=== PATIENT | male | born 1975 | race Caucasian/White ===

== ENCOUNTER 2020-09-15 09:14 | Observation (INO) | payer BC ==
[2020-09-15] MEDS ORDERED: SODIUM CHLORIDE 0.9% 1,000 ML IV STA (09:33)
--- NOTE | 2020-09-15 09:37 | ED ---
General Adult HPI - General Chief complaint: Neuro Symptoms/Deficit Stated complaint: Neuro symptoms Time Seen by Provider: 09/15/20 09:27 Source: patient, RN notes reviewed Mode of arrival: wheelchair Limitations: no limitations - History of Present Illness Initial comments: Patient is a pleasant 44-year-old male presenting to the emergency department with concerns for neurological symptoms. Symptoms have been mild and intermittent over the past week or 2. Symptoms worsened last night. Patient is forgetful about driving home today as well as possibly hitting his head yesterday. Patient has been off balance. Patient has said some inappropriate answers to questions and has been confused at times. No isolated area of weakness. Patient does complain of mild headache. Patient complains of feeling drowsy - Related Data Home Medications Medication Instructions Recorded Confirmed Ibuprofen [Advil] 400 - 1,200 mg PO Q6HR PRN 09/15/20 09/15/20 Multivit-Min/Folic/Vit K/Lycop 1 tab PO DAILY 09/15/20 09/15/20 [Men's Multivitamin Tablet] Allergies Allergy/AdvReac Type Severity Reaction Status Date / Time No Known Allergies Allergy Verified 09/15/20 10:40 Review of Systems ROS Statement: Those systems with pertinent positive or pertinent negative responses have been documented in the HPI. ROS Other: All systems not noted in ROS Statement are negative. Constitutional: Denies: fever Eyes: Denies: eye pain ENT: Denies: ear pain Respiratory: Denies: cough, dyspnea Cardiovascular: Denies: chest pain Endocrine: Reports: fatigue Gastrointestinal: Denies: abdominal pain Genitourinary: Denies: dysuria Musculoskeletal: Denies: back pain Skin: Denies: rash Neurological: Reports: as per HPI, headache, confusion Past Medical History Past Medical History: No Reported History History of Any Multi-Drug Resistant Organisms: None Reported Past Surgical History: No Surgical Hx Reported Past Psychological History: No Psychological Hx Reported Smoking Status: Current every day smoker Past Alcohol Use History: Daily Past Drug Use History: None Reported General Exam Limitations: no limitations General appearance: alert, in no apparent distress Head exam: Present: normocephalic Eye exam: Present: normal appearance, PERRL, EOMI. Absent: nystagmus ENT exam: Present: normal oropharynx Neck exam: Present: normal inspection Respiratory exam: Present: normal lung sounds bilaterally Cardiovascular Exam: Present: regular rate, normal rhythm GI/Abdominal exam: Present: soft. Absent: tenderness Extremities exam: Present: normal inspection Neurological exam: Present: alert, oriented X3, CN II-XII intact. Absent: motor sensory deficit Expanded Neurological exam: Present: protecting the airway Patient oriented to: Present: person, place, time Speech: Present: fluid speech Cranial nerves: EOM's Intact: Normal, Facial Sensation: Normal Sensory exam: Upper Extremity Light Touch: Normal, Lower Extremity Light Touch: Normal Motor strength exam: RUE: 5, LUE: 5, RLE: 5, LLE: 5 Eye Response: (4) open spontaneously Motor Response: (6) obeys commands Verbal Response: (5) oriented Psychiatric exam: Present: normal affect, normal mood Skin exam: Present: normal color Course Vital Signs 09/15/20 09/15/20 09:21 09:37 Temperature 98.2 F Pulse Rate 78 108 H Respiratory 18 18 Rate Blood Pressure 167/110 174/118 O2 Sat by Pulse 96 98 Oximetry EKG Findings - EKG Comments: EKG Findings:: Sinus tachycardia 1:15. FL 126. QRS 90. QT 314. QTC 434. Normal axis. Normal QRS. No acute ST change. Medical Decision Making - Medical Decision Making Patient reevaluated and resting comfortably in bed. Heart rate and blood pressure did remain high. Patient and family updated on results. Patient states he only drinks 2 large beers per day and denies drinking anything this morning. Patient is resistant to idea that symptoms could be related to alcohol use. Case was discussed with Dr. Seo, who will admit covering for Dr. Banks. He agrees with neurology consult and recommends Valium 5 mg every 8 as well as Lopressor 12.5 q8 - Lab Data Result diagrams: 09/15/20 09:43 09/15/20 09:43 Lab Results 09/15/20 09/15/20 09/15/20 Range/Units 09:43 09:43 09:43 WBC 7.4 (3.8-10.6) k/uL RBC 4.50 (4.30-5.90) m/uL Hgb 15.3 (13.0-17.5) gm/dL Hct 45.9 (39.0-53.0) % MCV 102.1 H (80.0-100.0) fL MCH 34.1 (25.0-35.0) pg MCHC 33.4 (31.0-37.0) g/dL RDW 13.2 (11.5-15.5) % Plt Count 303 (150-450) k/uL MPV 7.4 Neutrophils % 67 % Lymphocytes % 24 % Monocytes % 6 % Eosinophils % 1 % Basophils % 1 % Neutrophils # 4.9 (1.3-7.7) k/uL Lymphocytes # 1.7 (1.0-4.8) k/uL Monocytes # 0.4 (0-1.0) k/uL Eosinophils # 0.1 (0-0.7) k/uL Basophils # 0.1 (0-0.2) k/uL Macrocytosis Slight PT 10.0 (9.0-12.0) sec INR 1.0 (<1.2) APTT 21.8 L (22.0-30.0) sec Sodium 139 (137-145) mmol/L Potassium 4.8 (3.5-5.1) mmol/L Chloride 106 (98-107) mmol/L Carbon Dioxide 22 (22-30) mmol/L Anion Gap 11 mmol/L BUN 16 (9-20) mg/dL Creatinine 0.66 (0.66-1.25) mg/dL Est GFR (CKD-EPI)AfAm >90 (>60 ml/min/1.73 sqM) Est GFR (CKD-EPI)NonAf >90 (>60 ml/min/1.73 sqM) Glucose 94 (74-99) mg/dL Calcium 9.6 (8.4-10.2) mg/dL Total Bilirubin 0.5 (0.2-1.3) mg/dL AST 42 (17-59) U/L ALT 33 (4-49) U/L Alkaline Phosphatase 76 (38-126) U/L Troponin I (0.000-0.034) ng/mL Total Protein 7.8 (6.3-8.2) g/dL Albumin 4.6 (3.5-5.0) g/dL Urine Opiates Screen (NotDetected) Ur Oxycodone Screen (NotDetected) Urine Methadone Screen (NotDetected) Ur Propoxyphene Screen (NotDetected) Ur Barbiturates Screen (NotDetected) U Tricyclic Antidepress (NotDetected) Ur Phencyclidine Scrn (NotDetected) Ur Amphetamines Screen (NotDetected) U Methamphetamines Scrn (NotDetected) U Benzodiazepines Scrn (NotDetected) Urine Cocaine Screen (NotDetected) U Marijuana (THC) Screen (NotDetected) Serum Alcohol 135 mg/dL 09/15/20 09/15/20 Range/Units 09:43 09:43 WBC (3.8-10.6) k/uL RBC (4.30-5.90) m/uL Hgb (13.0-17.5) gm/dL Hct (39.0-53.0) % MCV (80.0-100.0) fL MCH (25.0-35.0) pg MCHC (31.0-37.0) g/dL RDW (11.5-15.5) % Plt Count (150-450) k/uL MPV Neutrophils % % Lymphocytes % % Monocytes % % Eosinophils % % Basophils % % Neutrophils # (1.3-7.7) k/uL Lymphocytes # (1.0-4.8) k/uL Monocytes # (0-1.0) k/uL Eosinophils # (0-0.7) k/uL Basophils # (0-0.2) k/uL Macrocytosis PT (9.0-12.0) sec INR (<1.2) APTT (22.0-30.0) sec Sodium (137-145) mmol/L Potassium (3.5-5.1) mmol/L Chloride (98-107) mmol/L Carbon Dioxide (22-30) mmol/L Anion Gap mmol/L BUN (9-20) mg/dL Creatinine (0.66-1.25) mg/dL Est GFR (CKD-EPI)AfAm (>60 ml/min/1.73 sqM) Est GFR (CKD-EPI)NonAf (>60 ml/min/1.73 sqM) Glucose (74-99) mg/dL Calcium (8.4-10.2) mg/dL Total Bilirubin (0.2-1.3) mg/dL AST (17-59) U/L ALT (4-49) U/L Alkaline Phosphatase (38-126) U/L Troponin I <0.012 (0.000-0.034) ng/mL Total Protein (6.3-8.2) g/dL Albumin (3.5-5.0) g/dL Urine Opiates Screen Not Detected (NotDetected) Ur Oxycodone Screen Not Detected (NotDetected) Urine Methadone Screen Not Detected (NotDetected) Ur Propoxyphene Screen Not Detected (NotDetected) Ur Barbiturates Screen Not Detected (NotDetected) U Tricyclic Antidepress Not Detected (NotDetected) Ur Phencyclidine Scrn Not Detected (NotDetected) Ur Amphetamines Screen Not Detected (NotDetected) U Methamphetamines Scrn Not Detected (NotDetected) U Benzodiazepines Scrn Not Detected (NotDetected) Urine Cocaine Screen Not Detected (NotDetected) U Marijuana (THC) Screen Not Detected (NotDetected) Serum Alcohol mg/dL - Radiology Data Radiology results: report reviewed (Computed tomography scan of the brain and CTA revealed no acute process) Disposition Clinical Impression: Ataxia, Alcohol intoxication, Hypertension Disposition: ADMITTED IP TO THIS HOSP Is patient prescribed a controlled substance at d/c from ED?: No Referrals: Inder Banks MD [Primary Care Provider] - 1-2 days Decision Time: 10:58
--- NOTE | 2020-09-15 10:01 | CT ---
EXAMINATION TYPE: CT brain wo con for TPA DATE OF EXAM: 09/15/2020 COMPARISON: None INDICATION: Slurred speech DLP: 1134.8 mGycm, Automated exposure control for dose reduction was used. CONTRAST: None CT of the brain is performed utilizing 3 mm thick sections through the posterior fossa and 3 mm thick sections through the remaining calvarium. Study is performed within 24 hours of arrival to the hosp ital. No abnormal hyperdensity is present to suggest an acute intracranial hemorrhage. No mass lesion is evident. No acute infarcts are evident. Ventricles and sulci are appropriate for the patient age. Minimal mucosal thickening is within the right maxillary sinus. There is mild mucosal thickening with in scattered bilateral ethmoid air cells, more so on the right. Mastoid air cells are clear. IMPRESSIONS: 1. No acute intracranial process radiographically apparent.
[2020-09-15 10:05] LABS: Basophils # (A) 0.1 k/uL (0-0.2); Basophils % (A) 1 %; Eosinophils # (A) 0.1 k/uL (0-0.7); Eosinophils % (A) 1 %; HCT 45.9 % (39.0-53.0); HGB 15.3 gm/dL (13.0-17.5); Lymphocytes # (A) 1.7 k/uL (1.0-4.8); Lymphocytes % (A) 24 %; MCH 34.1 pg (25.0-35.0); MCHC 33.4 g/dL (31.0-37.0); MCV 102.1 fL (80.0-100.0); Macrocytosis Slight; Mean Platelet Volume 7.4; Monocytes # (A) 0.4 k/uL (0-1.0); Monocytes % (A) 6 %; Neutrophils # (A) 4.9 k/uL (1.3-7.7); Neutrophils % (A) 67 %; Platelet Count 303 k/uL (150-450); RDW 13.2 % (11.5-15.5); WBC 7.4 k/uL (3.8-10.6)
[2020-09-15 10:12] LABS: Amphetamine Screen,Urine Not Detected (NotDetected); Barbiturate Screen,Urine Not Detected (NotDetected); Benzodiazepines Screen,Urine Not Detected (NotDetected); Cocaine Screen,Urine Not Detected (NotDetected); Methadone Screen, Urine Not Detected (NotDetected); Opiate Screen,Urine Not Detected (NotDetected); Oxycodone Screen, Urine Not Detected (NotDetected); Phencyclidine Screen,Urine Not Detected (NotDetected); Tricyclic Antidepressant,Urine Not Detected (NotDetected); Urn Cannabinoid Scrn Not Detected (NotDetected)
[2020-09-15 10:18] LABS: ALT 33 U/L (4-49); AST 42 U/L (17-59); African American GFR (CKD) >90 (>60 ml/min/1.73 sqM); Albumin 4.6 g/dL (3.5-5.0); Alkaline Phosphatase 76 U/L (38-126); Anion Gap 11 mmol/L; Blood Urea Nitrogen 16 mg/dL (9-20); Calcium 9.6 mg/dL (8.4-10.2); Carbon Dioxide 22 mmol/L (22-30); Chloride 106 mmol/L (98-107); Glucose 94 mg/dL (74-99); Non-African American GFR(CKD) >90 (>60 ml/min/1.73 sqM); Potassium 4.8 mmol/L (3.5-5.1); Sodium 139 mmol/L (137-145); Total Bilirubin 0.5 mg/dL (0.2-1.3); Total Protein 7.8 g/dL (6.3-8.2)
--- NOTE | 2020-09-15 10:22 | CT ---
EXAMINATION TYPE: CT angio head neck DATE OF EXAM: 09/15/2020 COMPARISON: None HISTORY: Slurred speech , dizziness, disoriented, and fall last night. CT DLP: 461.9 mGycm CONTRAST: Performed with IV Contrast, patient injected with 65 mL of Isovue 370. Combination Contrast CTA cervical carotids and [place] CTA cervical carotids with 3-D recons truction Contrast CTA of the cervical carotids was performed 3-D reconstruction imaging obtained at a separate workstation. Right carotid system: Mild plaque is seen of the right common carotid artery. There is mild plaque a lso noted at the carotid bulb and proximal ICA. No significant diameter reduction. ECA is patent. Right vertebral artery appears unremarkable. Left carotid system: Mild plaque is seen of the left common carotid artery. There is mild plaque als o noted at the carotid bulb and proximal ICA. No significant diameter reduction. ECA is patent. Lef t vertebral artery appears unremarkable. IMPRESSION: 1. No significant diameter reduction to account for the patient's symptoms. CTA [place] with 3-D reconstruction Contrast CTA of the [place] was performed 3-D reconstruction imaging obtained at a separate workstation. Vertebrobasilar system as well as intracranial portions of the internal carotid arteries and their ma brianda tributaries are patent. I do not see evidence for sizable aneurysm or vascular malformation. Pl ease note MRI provides greater sensitivity and specificity. Visualized brain appears grossly unremar kable. IMPRESSION: 1. No significant abnormality.
[2020-09-15 10:27] LABS: Alcohol 135 mg/dL
[2020-09-15 10:30] LABS: Partial Thromboplastin Time 21.8 sec (22.0-30.0)
--- NOTE | 2020-09-15 10:32 | XR ---
EXAMINATION TYPE: XR chest 2V DATE OF EXAM: 09/15/2020 COMPARISON: NONE HISTORY: Chest pain TECHNIQUE: Frontal and lateral views of the chest are obtained. FINDINGS: There is no focal air space opacity. No evidence for pneumothorax. No pleural effusion. The cardiac silhouette size is within normal limits. The osseous structures are grossly intact. IMPRESSION: 1. No acute cardiopulmonary process.
[2020-09-15] MEDS ORDERED: NALOXONE 0.4 MG/ML 1 ML VIAL IV PRN (11:00)
[2020-09-15] MEDS: LABETALOL 5 MG/ML VIAL MDV IVP STA ×2 (14:38→14:48)
[2020-09-15] MEDS: diazePAM 5 MG TAB PO SCH ×3 (14:43→23:08)
[2020-09-15] MEDS: SODIUM CHLORIDE 0.9% 1,000 ML IV SCH ×2 (14:44→23:13)
[2020-09-15] MEDS: METOPROLOL TARTRATE 12.5 MG TAB PO SCH ×2 (17:09→18:30)
--- NOTE | 2020-09-15 17:49 | P.CNNES ---
History of Present Illness Consult date: 09/15/20 Requesting physician: Huan Mayen Reason for Consult: Ataxia, neurology symptoms History of Present Illness: Patient is a 44-year-old male came to the hospital this morning at 9:14 AM for dizziness and not feeling well. 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 He does not remember how he got home, as he was quite drunk and friend dropped him home at around 10 PM last night. This morning he woke up at 8 AM and didn't feel right, states he felt like "delirious". He tried going to work, but did not feel right there. His worker dropped him home, and his brought him to the hospital. Denies any focal symptoms, slurred speech. Vital signs on arrival showed blood pressure 167/110, pulse rate 78 temperature 98.2. Computed tomography scan of the head was normal. Minimal mucosal thickening is within the right maxillary sinus. There is mild mucosal thickening within scattered bilateral ethmoid air cells, more so on the right. CTA of head and neck negative. Chest x-ray normal, EKG shows sinus tachycardia. Patient's blood test shows normal CBC with elevated MCV 102.1. PT/PTT normal. Chem-20 normal. Troponin negative. Urine drug screen negative. Blood level 135. Patient states that in the last 5-6 months he has been having episodes about once every 2 weeks, in which his left side of the face feels numb, then he gets blurred vision, as if his eyes are out of focus. Then he gets dizzy lightheaded and this episode last for about 5-10 minutes, maximum 20 minutes. Sometimes he gets headache with it. He saw a dentist, thinking it was related to poor dentition but everything was fine. He also saw an eye doctor recently and ever ything was normal. Patient also suffers from migraines, gets migraines about twice a year, which may last for up to a week. However he does get daily headaches all the time for which he takes ibuprofen. He does not remember having any headache free day in the last month. Patient has been a drinker, drinks 4-6 beers a day, 5 days a week. Sometimes he also drinks a can of vodka. He has been drinking heavily since he was age 20. He denies any drugs. He drinks 1 cup of coffee per day. Denies excessive caffeine. Review of Systems As above in detail. Patient denies any slurred speech facial droop focal weakness. Denies any chest pain shortness of breath wheezing or cough. Denies abdominal pain nausea vomiting diarrhea. Denies double vision. All other rev iew of systems unremarkable except as per HPI. Past Medical History Past Medical History: No Reported History History of Any Multi-Drug Resistant Organisms: None Reported Past Surgical History: No Surgical Hx Reported Past Psychological History: No Psychological Hx Reported Smoking Status: Current every day smoker Past Alcohol Use History: Daily Past Drug Use History: None Reported Medications and Allergies Home Medications Medication Instructions Recorded Confirmed Type Ibuprofen [Advil] 400 - 1,200 mg PO Q6HR PRN 09/15/20 09/15/20 History Multivit-Min/Folic/Vit K/Lycop 1 tab PO DAILY 09/15/20 09/15/20 History [Men's Multivitamin Tablet] Allergies Allergy/AdvReac Type Severity Reaction Status Date / Time No Known Allergies Allergy Verified 09/15/20 10:40 Physical Examination - Vital Signs Vital Signs: Vital Signs Temp Pulse Resp BP Pulse Ox 09/15/20 15:25 98 18 146/98 97 09/15/20 14:37 112 H 20 161/110 97 09/15/20 09:37 108 H 18 174/118 98 09/15/20 09:21 98.2 F 78 18 167/110 96 Intake and Output 09/15/20 09/15/20 09/15/20 06:59 14:59 22:59 Other: Weight 77.111 kg On examination patient is a middle aged male, in no acute distress. Patient is alert and awake oriented to time place and person. Speech and language functions are normal. Attention and concentration and fund of knowledge is adequate. On cranial nerve examination pupils are round and reactive to light, visual nguyễn are full, extraocular muscles are intact with n o nystagmus. Face is symmetric, tongue protrudes to the midline. Palatal elevation and sensation normal. Hearing and shoulder shrug normal. Facial sensation is normal. On muscle strength testing, there is no pronator drift and the strength is normal in arms and legs distally and proximally reflexes are 1+ and plantars are downgoing. Sensory touch is equal. Patient has moderate tremors for [id number]-[id number] testing. He has [id number] ataxia for aonc-sb-vuzp testing bilaterally. Patient is slightly clumsy for rapid supination and pronation. Tone and bulk of muscles normal. Gait deferred. There is no carotid bruit, S1 and S2 audible, chest is clear, abdomen soft nontender. No peripheral edema. Peripheral pulses present. Results - Laboratory Findings CBC and BMP: 09/15/20 09:43 09/15/20 09:43 Abnormal Lab Findings: Abnormal Labs 09/15/20 09/15/20 09:43 09:43 MCV 102.1 H APTT 21.8 L Assessment and Plan Assessment: * Ataxia, likely due to alcohol intoxication. * Intermittent episodes of left facial numbness, blurred vision and dizziness, unclear cause. Rule out TIAs. Rule out focal seizure, or perhaps related to alcoholism. * Chronic alcoholism. * Hypertension, not controlled * Tobacco use Plan: * Patient has presented with alcohol intoxication. Ataxia at this time is likely related to intoxication. Watch for alcohol withdrawals. * Start Thiamine, folate, multivitamins. * We will check B12, folate, RPR and TSH for paresthesias. Also check an A1c and lipid panel to check for vascular risk factors. * Patient had a normal CTA of head and neck. * EEG, rule out focal seizures. * Aspirin 81 mg daily. * Optimize control of blood pressure to target <130/80 * Recommend abstinence from alcohol and complete tobacco cessation.
[2020-09-15] MEDS: ASPIRIN 81 MG PO SCH (18:30)
[2020-09-15] MEDS: THIAMINE 100 MG TAB PO SCH (18:30)
--- NOTE | 2020-09-15 20:58 | US ---
EXAMINATION TYPE: US carotid duplex BILAT DATE OF EXAM: 09/15/2020 COMPARISON: CT 09/15/2020 CLINICAL HISTORY: Intermittent left facial paresthesia. EXAM MEASUREMENTS: RIGHT: Peak Systolic Velocity (PSV) cm/sec ----- Right CCA: 107 ----- Right ICA: 107 ----- Right ECA: 133 ICA/CCA ratio: 0.6 RIGHT: End Diastole cm/sec ----- Right CCA: 27.9 ----- Right ICA: 36.6 ----- Right ECA: 31.8 LEFT: Peak Systolic Velocity (PSV) cm/sec ----- Left CCA: 115 ----- Left ICA: 116 ----- Left ECA: 149 ICA/CCA ratio: 1.0 LEFT: End Diastole cm/sec ----- Left CCA: 29.6 ----- Left ICA: 44 ----- Left ECA: 33.4 VERTEBRALS (direction of flow): Right Vertebral: Antegrade Left Vertebral: Antegrade Rhythm: Normal No elevated velocities. Minimal plaque visualized. No significant stenosis. IMPRESSION: No hemodynamically significant stenosis of the bilateral ICAs. Criteria for Assigning % of Stenosis / Diameter reduction (Estimation based on the indirect measurements of the internal carotid artery velocities (ICA PSV). 1. Normal (no stenosis)=ICA PSV < 125 cm/s: ratio < 2.0: ICA EDV<40 cm/s. 2. Less than 50% stenosis=ICA PSV < 125 cm/s: ratio < 2.0: ICA EDV<40 cm/s. 3. 50 to 69% stenosis=ICA PSV of 125 to 230 cm/s: ration 2.0 ? 4.0: ICA EDV 40-100 cm/s. 4. Greater than 70% stenosis to near occlusion= ICA PSV > 230 cm/s: ratio > 4.0: ICA EDV > 100 cm/s. 5. Near occlusion= ICA PSV velocities may be low or undetectable: variable ratio and ICA EDV. 6. Total occlusion=unable to detect flow.
--- NOTE | 2020-09-15 23:48 | P.HPIM ---
History of Present Illness H&P Date: 09/15/20 Chief Complaint: Intermittent dizziness History of presenting complaint: This is a pleasant 44-year-old patient of Dr. Inder Banks. Normally drinks at least 4-5 large beers at night. Has been doing that since the age of 20. Also smokes a pack a day. Patient has multiple symptoms that he presents with. He has noticed To Be Dizzy off and on. Sometimes Complains of Numbness in the Left Side of the Face. Occasional Headache. Occasional Haziness of Vision. No Trouble Walking. About 4 Days Ago He Was on a Ladder Because of Strong When She Fell down. No Major Injury. Never Passed out. As a Fairly Healthy Diet Otherwise. No Trouble with Bowels or Urine. No Fever No Chills. Review of systems: GEN.: Tired EYES: None HEENT: As above NECK: None RESPIRATORY: None CARDIOVASCULAR: None GASTROINTESTINAL: None GENITOURINARY: None MUSCULOSKELETAL: None LYMPHATICS: None HEMATOLOGICAL: None PSYCHIATRY: None NEUROLOGICAL: As above Past medical history to include: [place] hypertension Social history: . Smokes a pack a day. Works in a [employer]. 4-5 large beers at night. Family history: Reviewed, noncontributory to presentation Physical examination: VITAL SIGNS: 98.2, 108, 18, 1 67 x 1 10, 96% room air GENERAL: BMI 26.6, slight perspiration, flushed facies. EYES: Pupils equal. Conjunctiva normal. HEENT: External appearance of nose and ears normal, oral cavity grossly normal. NECK: JVD not raised; masses not palpable. HEART: First and second heart sounds are normal; no edema. LUNGS: Respiratory rate normal; slightly decreased breath sounds. ABDOMEN: Soft, nontender, liver spleen not palpable, no masses palpable. PSYCH: Alert and oriented x3; mood and affect normal. NEUROLOGICAL: No nystagmus, sensation grossly preserved.. Negative Romberg's. LYMPHATICS: No lymph nodes palpable in the axilla and neck INVESTIGATIONS, reviewed in the clinical context: White count 7.4 hemoglobin 15.3 platelets 303 potassium 4.8 creatinine 0.66 Urine tox screen negative Serum alcohol 135 Computed tomography scan of the brain and CT edge of the brain both negative Assessment: -This is a patient of [place] alcohol use disorder presents with intermittent dizziness going on for some time. Occasionally gets numbness of the face oc casional headache and some hazy vision. We will check for B12 deficiency. We will also check patient's cerebellum. -Alcohol use disorder -Chronic nicotine dependence cigarette smoker -Essential hypertension -Alcohol withdrawal syndrome Plan: Patient is B12 folate is being checked. Patient put on Valium [id number] and Lopressor for alcohol withdrawal symptoms. Increase in Lopressor 25 mg twice a day. Care was discussed with the patient question also. We will order MRI of the brain. Past Medical History Past Medical History: No Reported History Additional Past Medical History / Comment(s): "I have high blood pressure when I go to the doctors but I think that is because im at the doctors." History of Any Multi-Drug Resistant Organisms: None Reported Past Surgical History: No Surgical Hx Reported Past Anesthesia/Blood Transfusion Reactions: No Reported Reaction Past Psychological History: No Psychological Hx Reported Smoking Status: Current every day smoker Past Alcohol Use History: Daily Past Drug Use History: None Reported Medications and Allergies Home Medications Medication Instructions Recorded Confirmed Type Ibuprofen [Advil] 400 - 1,200 mg PO Q6HR PRN 09/15/20 09/15/20 History Multivit-Min/Folic/Vit K/Lycop 1 tab PO DAILY 09/15/20 09/15/20 History [Men's Multivitamin Tablet] Allergies Allergy/AdvReac Type Severity Reaction Status Date / Time No Known Allergies Allergy Verified 09/15/20 10:40 Physical Exam Vitals: Vital Signs Temp Pulse Pulse Resp BP BP Pulse Ox 09/15/20 20:00 99.3 F 98 18 134/79 99 09/15/20 16:05 98.2 F 98 18 146/98 97 09/15/20 16:00 98.7 F 109 H 20 157/100 96 09/15/20 15:25 98 18 146/98 97 09/15/20 14:37 112 H 20 161/110 97 09/15/20 09:37 108 H 18 174/118 98 09/15/20 09:21 98.2 F 78 18 167/110 96 Intake and Output 09/15/20 09/15/20 09/16/20 14:59 22:59 06:59 Intake Total 600 Balance 600 Intake: Intake, IV Titration 600 Amount Sodium Chloride 0.9% 1, 600 000 ml @ 75 mls/hr IV . [id number] [facility] Rx#:[id number] Other: Voiding Method Toilet # Voids 1 Weight 77.111 kg Results CBC & Chem 7: 09/15/20 09:43 09/15/20 09:43 Labs: Abnormal Lab Results - Last 24 Hours (Table) 09/15/20 09/15/20 Range/Units 09:43 09:43 MCV 102.1 H (80.0-100.0) fL APTT 21.8 L (22.0-30.0) sec Thrombosis Risk Factor Assmnt - Choose All That Apply Any of the Below Risk Factors Present?: No Each Factor Represents 1 point: Age 41-60 years Other Risk Factors: No Other congenital or acquired thrombophilia - If yes, enter type in comment: No Thrombosis Risk Factor Assessment Total Risk Factor Score: 1 Thrombosis Risk Factor Assessment Level: Very Low Risk
[2020-09-16] MEDS: METOPROLOL TARTRATE 12.5 MG TAB PO SCH ×2 (02:24→10:22)
[2020-09-16] MEDS: diazePAM 5 MG TAB PO SCH (07:55)
[2020-09-16] MEDS: ASPIRIN 81 MG PO SCH (07:56)
[2020-09-16] MEDS: THIAMINE 100 MG TAB PO SCH (07:56)
[2020-09-16 08:08] VITALS: TEMP 98.5
[2020-09-16] MEDS ORDERED: MULTIVITAMINS, THERA 1 EACH TAB PO SCH (09:00)
--- NOTE | 2020-09-16 09:17 | MR ---
EXAMINATION TYPE: MR brain wo con DATE OF EXAM: 09/16/2020 8:54 AM COMPARISON: NONE HISTORY: Dizziness Multiplanar and multispin-echo imaging of the brain was performed . The ventricles, basal cisterns and sulci overlying the cerebral convexities are within normal limits. There is no evidence for midline shift or mass effect. Acute intracranial hemorrhage or extra-axial collection is not evident. The brain parenchyma reveals no abnormal increased signal. No acute edema is identified. The mastoid air cells are well-aerated. Mild chronic sinusitis involving the maxillary and ethmoid a ir cells. IMPRESSION: Unremarkable MRI of the brain. Chronic sinusitis noted.
[2020-09-16 13:37] VITALS: BP 159/105; PULSE 83; RESP 17
[2020-09-16 13:45] LABS: Hemoglobin A1C 5.2 % (4.0-6.0)
--- NOTE | 2020-09-16 22:45 | P.DS ---
Providers Date of admission: 09/15/20 10:58 Expected date of discharge: 09/16/20 Attending physician: Flip Seo Consults: 09/15/20 11:00 Consult Physician Urgent Consulting Provider: Justino Cerna Consult Reason/Comments: Ataxia, neurology symptoms Do you want consulting provider notified?: Yes [facility]: Chief Complaint: Intermittent dizziness History of presenting complaint: This is a pleasant 44-year-old patient of Dr. Inder Banks. Normally drinks at least 4-5 large beers at night. Has been doing that since the age of 20. Also smokes a pack a day. Patient has multiple symptoms that he presents with. He has noticed To Be Dizzy off and on. Sometimes Complains of Numbness in the Left Side of the Face. Occasional Headache. Occasional Haziness of Vision. No Trouble Walking. About 4 Days Ago He Was on a Ladder Because of Strong When She Fell down. No Major Injury. Never Passed out. As a Fairly Healthy Diet Otherwise. No Trouble with Bowels or Urine. No Fever No Chills. Patient presented with intermittent dizziness. [place] to be from alcohol related. MRI of the brain was unremarkable. Also diagnosed of hypertension. Put on beta blockers. Today-care was discussed at length with the patient. Questions answered. Also started on Antabuse. Told to completely refrain from alcohol. Patient educated to take his blood pressure daily. He'll follow-up with his PCP. Computed tomography scan of the brain, CT edge of the brain, carotid Doppler, brain MRI and negative. Discussion and discharge planning more than 35 minutes Consultation: Dr. Bragg from neurology Physical examination: VITAL SIGNS: 98.5, 94, 18, 169.99, 97% room air GENERAL: BMI 26.6, , flushed facies. psuedo- cushingoid facies EYES: Pupils equal. Conjunctiva normal. HEENT: External appearance of nose and ears normal, oral cavity grossly normal. NECK: JVD not raised; masses not palpable. HEART: First and second heart sounds are normal; no edema. LUNGS: Respiratory rate normal; slightly decreased breath sounds. ABDOMEN: Soft, nontender, liver spleen not palpable, no masses palpable. PSYCH: Alert and oriented x3; mood and affect normal. NEUROLOGICAL: No nystagmus, sensation grossly preserved.. Negative Romberg's. INVESTIGATIONS, reviewed in the clinical context: White count 7.4 hemoglobin 15.3 platelets 303 potassium 4.8 creatinine 0.66 Urine tox screen negative Serum alcohol 135 and an LDL 57 Computed tomography scan of the brain and CT edge of the brain both negative MRI of the brain-negative Carotid Doppler-no significant stenosis Assessment: -Alcohol use disorder -Chronic nicotine dependence cigarette smoker -Essential hypertension-with urgency -Alcohol withdrawal syndrome Disposition: Home Patient Condition at Discharge: Stable Plan - Discharge Summary Discharge Rx Participant: Yes New Discharge Prescriptions: New Chlorthalidone 25 mg PO DAILY #30 tab Metoprolol Tartrate [Lopressor] 25 mg PO BID #60 tablet Thiamine [Vitamin B-1] 100 mg PO DAILY #30 tab Disulfiram [Antabuse] 250 mg PO DIRECTED #30 tablet Continue Multivit-Min/Folic/Vit K/Lycop [Men's Multivitamin Tablet] 1 tab PO DAILY Ibuprofen [Advil] 400 - 1,200 mg PO Q6HR PRN PRN Reason: Pain Discharge Medication List Ibuprofen [Advil] 400 - 1,200 mg PO Q6HR PRN 09/15/20 [History] Multivit-Min/Folic/Vit K/Lycop [Men's Multivitamin Tablet] 1 tab PO DAILY 09/15/20 [History] Chlorthalidone 25 mg PO DAILY #30 tab 09/16/20 [Rx] Disulfiram [Antabuse] 250 mg PO DIRECTED #30 tablet 09/16/20 [Rx] Metoprolol Tartrate [Lopressor] 25 mg PO BID #60 tablet 09/16/20 [Rx] Thiamine [Vitamin B-1] 100 mg PO DAILY #30 tab 09/16/20 [Rx] Follow up Appointment(s)/Referral(s): Inder Banks MD [Primary Care Provider] - 1 Week Justino Cai MD [STAFF PHYSICIAN] - 10 Days Patient Instructions/Handouts: Hypertension (GEN), Alcohol Use Disorder (DC) Activity/Diet/Wound Care/Special Instructions: no alcohol daily - am BP log at home Discharge Disposition: HOME SELF-CARE
[2020-09-16 23:26] LABS: Folate, Serum 8.2 ng/mL
== END 2020-09-16 14:19 | disposition home or self-care (01) ==
LOC: EC 09:14 → 3SCARD 10:58
PROVIDERS: ADMIT Hospitalist; ATTEND Hospitalist
DX: R27.0 Ataxia, unspecified (principal); F10.229 Alcohol dependence with intoxication, unspecified; F10.239 Alcohol dependence with withdrawal, unspecified; I16.0 Hypertensive urgency; F17.210 Nicotine dependence, cigarettes, uncomplicated; R00.0 Tachycardia, unspecified; G43.909 Migraine, unspecified, not intractable, without status migrainosus; R20.0 Anesthesia of skin; R42 Dizziness and giddiness
CPT/HCPCS: 96361 ×3; 96374; 99285; 36415; 93005; 80061; 80053; 84443; 82607; 82746; 84484; 85025; 85610; 85730; 86780; 80306; 80320; 83036; 71046; 93880; 70496; 70450; 70498; 70551; G0378 ×2; Q9967

== ENCOUNTER → 2020-12-27 | Outpatient (CLI) | payer BC ==
--- NOTE | 2020-12-27 09:41 | MR ---
EXAMINATION TYPE: MR brain wo/w con DATE OF EXAM: 12/27/2020 COMPARISON: MR brain 09/16/2020 HISTORY: Headaches TECHNIQUE: Multiplanar, multisequence images of the brain and brainstem is performed without and with IV contras t, utilizing 7.5 mL intravenous Gadavist . FINDINGS: Diffusion weighted images demonstrate no evidence of a recent infarct or other diffusion ab normality. There is no extra-axial fluid collection or significant white matter signal abnormality. The ventricular system and cisternal spaces are normal in size and appearance. The brain volume is age appropriate. Midline structures demonstrate normal morphology. The craniocervical junction appears within normal limits. Post contrast images demonstrate no abnormal enhancement. The dural venous sinuses appear pa tent. The visualized sinuses are remarkable for inflammatory change in the frontal sinus, ethmoid air cells, mucosal thickening in the maxillary sinuses, and the globes are intact, interval development of abnormal T2 increased signal in the mastoid air cells on the left. IMPRESSION: Sinus disease, correlate for mastoiditis. Stable brain MRI.
== END ==
LOC: RADMRIMAIN 08:00
PROVIDERS: ATTEND Family Medicine
DX: R51.9 Headache, unspecified (principal)
CPT/HCPCS: 70553; A9585

== ENCOUNTER → 2021-04-20 | Outpatient (CLI) | payer OTHER ==
--- NOTE | 2021-04-20 13:37 | XR ---
EXAMINATION TYPE: XR chest 2V DATE OF EXAM: 04/20/2021 COMPARISON: 09/15/2020 INDICATION: Preemployment physical TECHNIQUE: Frontal and lateral views of the chest are obtained. FINDINGS: The heart size is normal. The pulmonary vasculature is normal. The lungs are clear. IMPRESSION: 1. No acute pulmonary process.
[2021-04-20 13:44] LABS: Appearance,Urine Clear (Clear); Bilirubin,Urine Negative (Negative); Blood,Urine Negative (Negative); Color,Urine Yellow; Glucose,Urine (UA) Negative (Negative); Ketones,Urine 1+ (Negative); Leukocyte Esterase,Urine Negative (Negative); Nitrite,Urine Negative (Negative); PH, Urine 5.5 (5.0-8.0); Protein,Urine Negative (Negative); Specific Gravity,Urine 1.031 (1.001-1.035); Urobilinogen,Urine <2.0 mg/dL (<2.0)
[2021-04-20 14:21] LABS: ALT 22 U/L (4-49); AST 22 U/L (17-59); African American GFR (CKD) >90 (>60 ml/min/1.73 sqM); Albumin 4.5 g/dL (3.5-5.0); Albumin/Globulin Ratio 1.7; Alkaline Phosphatase 69 U/L (38-126); Anion Gap 10 mmol/L; Blood Urea Nitrogen 17 mg/dL (9-20); Calcium 10.1 mg/dL (8.4-10.2); Carbon Dioxide 28 mmol/L (22-30); Chloride 101 mmol/L (98-107); Globulin 2.6 g/dL; Glucose 99 mg/dL (74-99); Non-African American GFR(CKD) >90 (>60 ml/min/1.73 sqM); Potassium 4.8 mmol/L (3.5-5.1); Sodium 139 mmol/L (137-145); Total Bilirubin 0.6 mg/dL (0.2-1.3); Total Protein 7.1 g/dL (6.3-8.2)
[2021-04-20 18:40] LABS: Basophils # (A) 0.07 X 10*3/uL (0.00-0.10); Basophils % (A) 0.8 %; Eosinophils # (A) 0.16 X 10*3/uL (0.04-0.35); Eosinophils % (A) 1.8 %; HCT 42.1 % (39.6-50.0); HGB 14.3 g/dL (13.0-17.0); Lymphocytes # (A) 2.12 X 10*3/uL (0.90-5.00); MCH 33.3 pg (27.0-32.0); MCV 98.1 fL (80.0-97.0); Mean Platelet Volume 10.6 fL (9.5-12.2); Monocytes # (A) 0.74 X 10*3/uL (0.20-1.00); Monocytes % (A) 8.4 %; Neutrophils # (A) 5.71 X 10*3/uL (1.80-7.70); Neutrophils % (A) 64.7 %; Platelet Count 294 X 10*3/uL (140-440); RBC 4.29 X 10*6/uL (4.40-5.60); RDW 13.8 % (11.5-14.5); WBC 8.83 X 10*3/uL (4.50-10.00)
== END | disposition home or self-care (01) ==
LOC: LABWHC1 12:46
PROVIDERS: ATTEND Emergency Medicine
DX: Z02.1 Encounter for pre-employment examination (principal)
CPT/HCPCS: 36415; 71046; 80053; 81003; 84153; 85025

== ENCOUNTER → 2021-11-21 | Outpatient (CLI) | payer OTHER ==
--- NOTE | 2021-11-21 09:15 | MR ---
EXAMINATION TYPE: MR cervical spine wo con DATE OF EXAM: 11/21/2021 COMPARISON: None HISTORY: Cervicalgia TECHNIQUE: Multiplanar, multisequence images of the cervical spine were acquired without contrast. C2-C3: No evidence for degenerative disc disease. No disc bulge/herniation or protrusion. No Canal stenosis. Foramina are patent bilaterally. C3-C4: Mild uncovertebral joint hypertrophy on the right. Mild disc desiccation. No canal stenosis. M ild right-sided foraminal encroachment C4-C5: Bilateral uncovertebral joint hypertrophy. Vertebral body hemangioma at C5. No disc herniation or canal stenosis. Mild bilateral foraminal encroachment. C5-C6: Broad-based disc bulging with mild effacement of the thecal sac. Bilateral uncovertebral joint hypertrophy with mild right foraminal encroachment. No canal stenosis C6-C7: No disc herniation or canal stenosis. There is bilateral uncovertebral joint hypertrophy. Neur al foramina demonstrates no significant encroachment. Mild hypertrophic change of the facets. C7-T1: No evidence for degenerative disc disease. No disc bulge/herniation or protrusion. No Canal stenosis. Foramina are patent bilaterally. Cervical segments are intact. There is normal alignment. Cervical spinal cord is of normal signal. Craniovertebral junction relationships are within normal limits. IMPRESSION: 1. Multilevel mild degenerative disc disease and uncovertebral joint hypertrophy resulting in multile martin mild foraminal encroachment as discussed above. No discrete herniation or canal stenosis. 2. Mild broad-based disc bulging C5-C6 with effacement of thecal sac but no canal stenosis.
== END | disposition home or self-care (01) ==
LOC: RADMRIMAIN 06:02
PROVIDERS: ATTEND Physical Medicine & Rehabilitation
DX: M50.10 Cervical disc disorder with radiculopathy, unspecified cervical region (principal); M50.222 Other cervical disc displacement at C5-C6 level
CPT/HCPCS: 72141

== ENCOUNTER → 2021-12-13 | Outpatient (CLI) | payer OTHER ==
[2021-12-13 08:11] VITALS: BP 117/76; PULSE 94; RESP 18; TEMP 97.9
--- NOTE | 2021-12-13 08:12 | P.CON ---
Consult Note - . Consult date: 12/13/21 Assessment/Plan:: HISTORY OF PRESENT ILLNESS: 46 -year-old male as a referral from Dr. Anglin presents today with neck pain due to cervical degenerative disc disease, disc herniation, facet arthropathy and multilevel nerve root encroachment for evaluation. A shunt states his pain is 5 out of 10 in intensity, dull and achy in the middle aspect of his cervical spine with radiation of pain and a sharp shooting character greater to the right shoulder than the left. Patient states his pain is provoked with lifting and overhead reaching. Pain is alleviated with medications, heat, physical therapy in September 2021, home exercise stretching regimen, repositioning and rest. PMH: Hypertension, osteoarthritis PSH: Right carpal tunnel syndrome SH: 35 pack/year tobacco use. History of EtOH abuse. Denies illicit drug use. and lives with child. FH: Noncontributory All: NKDA Meds: See list REVIEW OF ORGAN SYSTEMS: CONSTITUTIONAL: No fevers or chills. No recent weight loss. HEENT: No visual acuity loss, eye pain, difficulties with hearing. No nosebleeds. No difficulty swallowing. RESPIRATORY: Denies any troubles with breathing or dyspnea on exertion. CARDIOVASCULAR: Denies any chest pain, palpitations, or recent heart attacks. GASTROINTESTINAL: Denies fatty food intolerance. Has change in bowel habits and gas bloat. GENITOURINARY: Denies any blood in urine. Has increased urinary frequency. NEUROLOGICAL: + numbness and tingling along the distal extremities. No seizure disorders or headaches. MUSCULOSKELETAL: + back pain SKIN: No skin cancer. No rash. PSYCHIATRIC: Denies current depression or suicidal thoughts. ENDOCRINE: Denies current thyroid disorders. Denies any blood sugar glucose intolerance. HEME/LYMPHATIC: Denies any lumps and bumps around the neck. History of deep venous thrombosis. ALLERGY/IMMUNOLOGY: No immunoglobulin therapy. No immune deficiencies. BREAST: Denies current breast lumps, pain or nipple discharge. Physical Examinations : Constitutional : Cooperative , not in acute distress . HEENT: Neck supple. No Lymphadenopathy. Normal thyroid size . Eyes no ptosis , no icterus, no photophobia . Hearing intact. Normal oropharynx. No Thrush. Respiratory : Chest clear to auscultations bilaterally. No wheezing. No rhonchi. Cardiovascular : Regular rate and rhythm , S1 / S2. No S3 . No S4. Gastrointestinal : Abdomen soft. No tenderness. Bowel sounds x 4. No organomegaly . Genitourinary : Deferred. Neurologic : Cranial nerve II to XII intact. No focal neurological deficits. Psychiatric : alert & oriented x 3. Matching mood & appropriate affect. Judgment & insight intact. Lymphatic No Lymphadenopathy. Musculoskeletal : Cervical Spine Motor strength in the deltoid and biceps: Normal right side. Normal Left side Motor strength biceps and the wrist extensors: Normal right side . Normal left side Motor strength in the triceps muscle: Normal right side. Normal left side Deep tendon reflexes: Normal at the biceps. Normal at Brachioradialis. Normal at triceps Cervical facet loading test: positive bilaterally over the bilateral C4-C5 and C5-C6 jump reflex Spurling test: positive bilaterally Neck distraction test: positive bilaterally Jluis sign: positive bilaterally Lumbar spine Motor strength lower extremities ,thigh and legs 5/5 Right side , 5/5 Left side Deep tendon reflexes : Normal Knee Jerk. Normal Ankle Jerk Lumbar facet Loading Test: positive Right / positive Left Range of motion of the lumbar spine Flexion 30 degrees, extension 10 degrees Straight Leg Raise test: Left/ Right positive at degree Lakhwinder test: positive right / positive left. Severe tenderness over the Sacroiliac joint on the Right / Left sides Gaenslen test: positive bilaterally Seated flexion test: positive bilaterally. Imaging: MRI of the cervical spine from 11/21/21 reviewed Assessment/ Plan : Recommendation of bilateral C3 to C5 facet blocks of the medial branches Risks, benefits of procedure discussed and patient verbalized understanding Denies aspirin or anticoagulants use All questions answered I have spent greater than 50 minutes on patient care today. Dr Kessler was available by phone for the evaluation of this patient. The time was used to review the medical records including relevant urine studies and Prescription history (MAPs), review of the available imaging, evaluation and examination of the patient, coordination of care with the medical staff and if applicable referring physicians, as well as creation of the medical record PQRS Measure Charge Sheet Mode of Arrival: Ambulatory - Pain Location Head Non-Pharmacological Interventions: Heat, Home Exercise, Ice, Massage, Physical Therapy, Position/Reposition, Stretching Pharmacological Interventions: PRN Medication PQRS Narrative: Blood Pressure 117/76 Pain Intensity [Head] 5 Scale Used Numeric (1 - 10) Hx Alcohol Use (MH) Yes Home Medications: Ambulatory Orders Ibuprofen [Advil] 800 mg PO Q8HR PRN 09/15/20 Losartan-Hctz 50-12.5 mg [Hyzaar 50-12.5] 1 tab PO DAILY 12/11/21 traMADol HCL 50 mg PO BID PRN 12/11/21
== END ==
LOC: PNWHC3 07:24
PROVIDERS: ATTEND Physician Assistant Medical
DX: M54.12 Radiculopathy, cervical region (principal); I10 Essential (primary) hypertension; M19.90 Unspecified osteoarthritis, unspecified site; F17.210 Nicotine dependence, cigarettes, uncomplicated; Z79.82 Long term (current) use of aspirin; Z79.899 Other long term (current) drug therapy
CPT/HCPCS: 99202

== ENCOUNTER 2022-11-03 03:34 | Emergency (ER) | payer OTHER ==
[2022-11-03] MEDS ORDERED: SODIUM CHLORIDE 0.9% 1,000 ML IV ONE (04:37)
[2022-11-03] MEDS ORDERED: DEXAMETHASONE SOD PHOSPHATE 10 MG/ML 1 ML VIAL IVP STA (04:37)
[2022-11-03] MEDS ORDERED: diphenhydrAMINE 50 MG/ML 1 ML VIAL IVP STA (04:37)
[2022-11-03] MEDS ORDERED: PROCHLORPERAZINE INJ 10 MG/2 ML VIAL IVP STA (04:37)
[2022-11-03 05:08] LABS: Basophils # (A) 0.1 k/uL (0-0.2); Basophils % (A) 1 %; Eosinophils # (A) 0.3 k/uL (0-0.7); Eosinophils % (A) 5 %; HGB 11.7 gm/dL (13.0-17.5); Lymphocytes # (A) 1.4 k/uL (1.0-4.8); Lymphocytes % (A) 24 %; MCH 26.2 pg (25.0-35.0); MCHC 26.6 g/dL (31.0-37.0); MCV 98.3 fL (80.0-100.0); Mean Platelet Volume 8.8; Monocytes # (A) 0.4 k/uL (0-1.0); Monocytes % (A) 7 %; Neutrophils # (A) 3.5 k/uL (1.3-7.7); Neutrophils % (A) 60 %; Platelet Count 301 k/uL (150-450); RBC 4.48 m/uL (4.30-5.90); RDW 12.6 % (11.5-15.5); WBC 5.9 k/uL (3.8-10.6)
[2022-11-03 05:17] LABS: ALT 21 U/L (4-49); AST 18 U/L (17-59); African American GFR (CKD) >90 (>60 ml/min/1.73 sqM); Albumin 3.8 g/dL (3.5-5.0); Alkaline Phosphatase 66 U/L (38-126); Anion Gap 5 mmol/L; Blood Urea Nitrogen 19 mg/dL (9-20); Calcium 9.9 mg/dL (8.4-10.2); Carbon Dioxide 26 mmol/L (22-30); Chloride 107 mmol/L (98-107); Glucose 110 mg/dL (74-99); Magnesium 2.1 mg/dL (1.6-2.3); Non-African American GFR(CKD) >90 (>60 ml/min/1.73 sqM); Potassium 4.4 mmol/L (3.5-5.1); Sodium 138 mmol/L (137-145); Total Bilirubin 0.3 mg/dL (0.2-1.3); Total Protein 6.5 g/dL (6.3-8.2)
[2022-11-03 05:31] LABS: INR 0.9 (<1.2); Partial Thromboplastin Time 22.8 sec (22.0-30.0); Prothrombin Time 9.7 sec (9.0-12.0)
--- NOTE | 2022-11-03 05:58 | CT ---
EXAMINATION TYPE: CT angio head neck DATE OF EXAM: 11/03/2022 COMPARISON: 09/15/2020 HISTORY: Neck pain with blurry vision, left head pain CT DLP: 502.2 mGycm Automated exposure control for dose reduction was used. CONTRAST: Performed with IV Contrast, patient injected with 65 mL of Isovue 370. Images obtained from the aortic arch to the vertex of the brain with the IV contrast. There are Three -D postprocessed images. There is normal branching pattern of the great vessels on the aortic arch. There is arterial flow in both subclavian arteries. There is arterial flow in the common internal and external carotid arteries bilaterally. There is wide patency of the carotid artery bifurcations. There is arterial flow in bot h vertebral arteries. There is arterial flow in the vertebrobasilar artery system. No evidence of car otid or vertebral artery aneurysm or dissection. There is arterial flow in the anterior middle and posterior cerebral arteries. There is no mass effec t. No evidence of intracranial aneurysm or neovascularity. No evidence of intracranial hemodynamic ar terial stenosis. There is normal enhancement of the venous sinuses. IMPRESSION: Normal CT angiogram of the brain. Normal CT angiogram of the neck.
[2022-11-03 06:16] VITALS: RESP 16
[2022-11-03] MEDS ORDERED: methocarbamoL 750 MG TAB PO ONE (06:30)
--- NOTE | 2022-11-03 06:32 | ED ---
General Adult HPI - General Chief complaint: Neck Pain/Injury Stated complaint: Neck pain, GRIGGS Time Seen by Provider: 11/03/22 04:27 Source: patient Mode of arrival: ambulatory Limitations: no limitations - History of Present Illness Initial comments: This 47-year-old male who presents emergency department for left-sided neck pain. The patient is a past medical history including previous migraines but stated that he has had pain on the left side of his neck over the last 5 days. The patient's that the pain has become worse and focused just lateral to the midline spine. The patient had full range of motion of his neck but stated that the pain is worse with laying flat and improved with massaging the area. The patient did state that he had pain that radiated up his left side of his head associated with intermittent blurriness of vision which she stated was similar to his previous migraines. The patient denied any trauma to the area and denied any other acute pain. The patient denied any numbness and tingling in his upper or lower extremities. The patient was resting in bed comfortably without any other acute distress. - Related Data Home Medications Medication Instructions Recorded Confirmed Ibuprofen [Advil] 800 mg PO Q8HR PRN 09/15/20 12/13/21 Losartan-Hctz 50-12.5 mg [Hyzaar 1 tab PO DAILY 12/11/21 12/13/21 50-12.5] traMADol HCL 50 mg PO BID PRN 12/11/21 12/13/21 Previous Rx's Medication Instructions Recorded Lidocaine 5% Patch [Lidoderm] 1 patch TOPICAL DAILY #14 patch 11/03/22 Naproxen [EC-Naproxen] 500 mg PO BID #30 tab 11/03/22 methocarbamoL [Robaxin-750] 750 mg PO TID #30 tab 11/03/22 Allergies Allergy/AdvReac Type Severity Reaction Status Date / Time No Known Allergies Allergy Verified 11/03/22 03:41 Review of Systems ROS Statement: Those systems with pertinent positive or pertinent negative responses have been documented in the HPI. ROS Other: All systems not noted in ROS Statement are negative. Past Medical History Past Medical History: Hypertension Additional Past Medical History / Comment(s): constant headaches-sharp pain/constant back of neck & rt shoulder w/ numbness and shooting pain History of Any Multi-Drug Resistant Organisms: None Reported Past Surgical History: Orthopedic Surgery Additional Past Surgical History / Comment(s): cyst removed finger Past Anesthesia/Blood Transfusion Reactions: No Reported Reaction Past Psychological History: No Psychological Hx Reported Smoking Status: Current every day smoker Past Alcohol Use History: Occasional Past Drug Use History: None Reported - Past Family History Mother Family Medical History: No Reported History Father Family Medical History: No Reported History General Exam Limitations: no limitations General appearance: alert, in no apparent distress Head exam: Present: atraumatic, normocephalic, normal inspection Eye exam: Present: normal appearance, PERRL Pupils: Present: normal accommodation ENT exam: Present: normal exam, normal oropharynx, mucous membranes moist Neck exam: Present: normal inspection, tenderness (Minor tenderness to palpation noted to the left lateral paraspinal cervical muscles) Respiratory exam: Present: normal lung sounds bilaterally Cardiovascular Exam: Present: regular rate, normal rhythm, normal heart sounds GI/Abdominal exam: Present: soft, normal bowel sounds Extremities exam: Present: normal inspection, full ROM Back exam: Present: normal inspection, full ROM Neurological exam: Present: alert, oriented X3, CN II-XII intact Psychiatric exam: Present: normal affect, normal mood Skin exam: Present: warm, dry Course Vital Signs 11/03/22 11/03/22 11/03/22 03:41 06:15 07:28 Temperature 98.6 F 98.3 F Pulse Rate 103 H 82 76 Respiratory 18 16 16 Rate Blood Pressure 160/93 134/84 130/84 O2 Sat by Pulse 99 100 99 Oximetry Medical Decision Making - Medical Decision Making Was pt. sent in by a medical professional or institution (, PA, CLASS C TRUCK DRIVER, urgent care, hospital, or [facility]...) When possible be specific @ -No Did you speak to anyone other than the patient for history (EMS, parent, family, police, friend...)? What history was obtained from this source @ -No Did you review nursing and triage notes (agree or disagree)? Why? @ -I reviewed and agree with nursing and triage notes Were old charts reviewed (outside hosp., previous admission, EMS record, old EKG, old radiological studies, urgent care reports/EKG's, [facility] records)? Report findings @ -No old charts were reviewed Differential Diagnosis (chest pain, altered mental status, abdominal pain women, abdominal pain men, vaginal bleeding, weakness, fever, dyspnea, syncope, headache, dizziness, GI bleed, back pain, seizure, CVA, palpatations, mental health)? @ -Cervical radiculopathy, cervical muscle strain, midline cervical spinal fracture, carotid artery occlusion EKG interpreted by me (3pts min.). @ -None X-rays interpreted by me (1pt min.). @ -None done CT interpreted by me (1pt min.). @ -CTA of the head and neck was obtained and was interpreted by myself showing no acute process U/S interpreted by me (1pt. min.). @ -None done What testing was considered but not performed or refused? (CT, X-rays, U/S, labs )? Why? @ -None What meds were considered but not given or refused? Why? @ -None Did you discuss the management of the patient with other professionals (professionals i.e. , PA, CLASS C TRUCK DRIVER, lab, RT, psych nurse, social psychologist, coat feller, teacher, fare enforcement officer, showcase trimmer)? Give summary @ -No Was smoking cessation discussed for >3mins.? @ -No Was critical care preformed (if so, how long)? @ -No Were there social determinants of health that impacted care today? How? (Homelessness, low income, unemployed, alcoholism, drug addiction, transportation, low edu. Level, literacy, decrease access to med. care, senior living, rehab)? @ -No Was there de-escalation of care discussed even if they declined (Discuss DNR or withdrawal of care, Hospice)? DNR status @ -No What co-morbidities impacted this encounter? (DM, HTN, Smoking, COPD, CAD, Cancer, CVA, ARF, Chemo, Hep., AIDS, mental health diagnosis, sleep apnea, morbid obesity)? @ -None Was patient admitted / discharged? Hospital course, mention meds given and route, prescriptions, significant lab abnormalities, going to OR and other pertinent info. @ -The patient was seen and evaluated in the emergency department. Physical exam, the patient was resting in bed comfortably without any acute distress. Vital signs were stable. The patient had full range of motion of his head and neck. Due to the patient's cervical pain in the setting of radiation of the head associated with intermittent blurry vision, a CTA of the head and neck was obtained. Imaging was negative and labs are negative. The patient had been given a headache cocktail as well as Robaxin, lidocaine. On reevaluation, the patient stated that his symptoms had improved. The patient likely had a cervical muscle strain versus cervical radiculopathy. The patient did ultimately state that he has had issues with his neck and shoulder on the left side for "several months" and stated that the pain is more now on his neck over the last several weeks. The patient was seems still for discharge and told to follow-up with his primary care physician for further workup and evaluation. The patient was agreeable to this and all discretions were answered. The dinh ient was discharged home in stable condition. Undiagnosed new problem with uncertain prognosis? @ -No Drug Therapy requiring intensive monitoring for toxicity (Heparin, Nitro, Insulin, Cardizem)? @ -No Were any procedures done? @ -No Diagnosis/symptom? @ -Cervical muscle strain, cervical radiculopathy Acute, or Chronic, or Acute on Chronic? @ -Acute on chronic Uncomplicated (without systemic symptoms) or Complicated (systemic symptoms)? @ -Uncomplicated Side effects of treatment? @ -No Exacerbation, Progression, or Severe Exacerbation? @ -No Poses a threat to life or bodily function? How? (Chest pain, [place], [place], pneumonia, PE, COPD, DKA, ARF, appy, cholecystitis, CVA, Diverticulitis, Homicidal, Suicidal, threat to staff... and all critical care pts) @ -No - Lab Data Result diagrams: 11/03/22 04:55 11/03/22 04:55 Lab Results 11/03/22 11/03/22 11/03/22 Range/Units 04:55 04:55 04:55 WBC 5.9 (3.8-10.6) k/uL RBC 4.48 (4.30-5.90) m/uL Hgb 11.7 L (13.0-17.5) gm/dL Hct 44.0 (39.0-53.0) % MCV 98.3 (80.0-100.0) fL MCH 26.2 (25.0-35.0) pg MCHC 26.6 L (31.0-37.0) g/dL RDW 12.6 (11.5-15.5) % Plt Count 301 (150-450) k/uL MPV 8.8 Neutrophils % 60 % Lymphocytes % 24 % Monocytes % 7 % Eosinophils % 5 % Basophils % 1 % Neutrophils # 3.5 (1.3-7.7) k/uL Lymphocytes # 1.4 (1.0-4.8) k/uL Monocytes # 0.4 (0-1.0) k/uL Eosinophils # 0.3 (0-0.7) k/uL Basophils # 0.1 (0-0.2) k/uL PT 9.7 (9.0-12.0) sec INR 0.9 (<1.2) APTT 22.8 (22.0-30.0) sec Sodium 138 (137-145) mmol/L Potassium 4.4 (3.5-5.1) mmol/L Chloride 107 (98-107) mmol/L Carbon Dioxide 26 (22-30) mmol/L Anion Gap 5 mmol/L BUN 19 (9-20) mg/dL Creatinine 0.58 L (0.66-1.25) mg/dL Est GFR (CKD-EPI)AfAm >90 (>60 ml/min/1.73 sqM) Est GFR (CKD-EPI)NonAf >90 (>60 ml/min/1.73 sqM) Glucose 110 H (74-99) mg/dL Calcium 9.9 (8.4-10.2) mg/dL Magnesium 2.1 (1.6-2.3) mg/dL Total Bilirubin 0.3 (0.2-1.3) mg/dL AST 18 (17-59) U/L ALT 21 (4-49) U/L Alkaline Phosphatase 66 (38-126) U/L Total Protein 6.5 (6.3-8.2) g/dL Albumin 3.8 (3.5-5.0) g/dL Disposition Clinical Impression: Cervical radiculopathy, Strain of neck muscle Disposition: HOME SELF-CARE Condition: Stable Instructions (If sedation given, give patient instructions): Cervical Strain (ED) Prescriptions: Naproxen [EC-Naproxen] 500 mg PO BID #30 tab Lidocaine 5% Patch [Lidoderm] 1 patch TOPICAL DAILY #14 patch methocarbamoL [Robaxin-750] 750 mg PO TID #30 tab Is patient prescribed a controlled substance at d/c from ED?: No Referrals: Inder Banks MD [Primary Care Provider] - 1-2 days Time of Disposition: 06:30
[2022-11-03] MEDS ORDERED: LIDOCAINE 5% PATCH TOPICAL SCH (07:00)
[2022-11-03 07:29] VITALS: BP 130/84; PULSE 76; TEMP 98.3
== END 2022-11-03 07:38 | disposition home or self-care (01) ==
LOC: EC 03:34
DX: S16.1XXA Strain of muscle, fascia and tendon at neck level, initial encounter (principal); M54.12 Radiculopathy, cervical region; I10 Essential (primary) hypertension; F17.200 Nicotine dependence, unspecified, uncomplicated; X58.XXXA Exposure to other specified factors, initial encounter
CPT/HCPCS: 36415; 80053; 83735; 85025; 85610; 85730; 70496; 70498; 99284; 96374; 96375 ×2; 96361; J1200; J0780; J1100; Q9967

== ENCOUNTER → 2023-02-17 | Outpatient (CLI) | payer OTHER ==
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
== END | disposition home or self-care (01) ==
LOC: RADXRMAIN 13:27
PROVIDERS: ATTEND Emergency Medicine
DX: S62.616A Displaced fracture of proximal phalanx of right little finger, initial encounter for closed fracture (principal); M79.89 Other specified soft tissue disorders; X58.XXXA Exposure to other specified factors, initial encounter

== ENCOUNTER → 2024-09-09 | Outpatient (CLI) | payer OTHER ==
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
== END | disposition home or self-care (01) ==
LOC: RADXRMAIN 12:52
PROVIDERS: ATTEND Emergency Medicine
DX: T25.022A Burn of unspecified degree of left foot, initial encounter (principal)